=== PATIENT | female | born 1990 | race Native Hawaiian/Other Pacific Islander ===

== ENCOUNTER 2019-04-12 14:48 | Emergency (ER) | payer OTHER ==
[2019-04-12 16:12] VITALS: BP 153/93
--- NOTE | 2019-04-12 16:47 | Emergency Department Report ---
- General Chief Complaint: Upper Respiratory Infection Stated Complaint: FLU LIKE SYMPTOMS Time Seen by Provider: 04/12/19 16:26 Source: patient Mode of arrival: Ambulatory Limitations: No Limitations - History of Present Illness MD Complaint: fever, cough -: days(s) Severity: moderate Context: sick contacts ED Review of Systems ROS: Stated complaint: FLU LIKE SYMPTOMS Other details as noted in HPI Comment: All other systems reviewed and negative Constitutional: fever Respiratory: cough, wheezing. denies: shortness of breath Cardiovascular: denies: chest pain, palpitations Gastrointestinal: denies: abdominal pain, nausea Musculoskeletal: denies: back pain ED Past Medical Hx - Past Medical History Previous Medical History?: No - Surgical History Past Surgical History?: Yes Hx Cholecystectomy: Yes Additional Surgical History: 2 c- sections, wisdom - Social History Smoking Status: Current Every Day Smoker Substance Use Type: None ED Physical Exam - General Limitations: No Limitations General appearance: alert, in no apparent distress - Head Head exam: Present: atraumatic, normocephalic, normal inspection - Eye Eye exam: Present: normal appearance - ENT ENT exam: Present: normal exam, normal orophraynx, mucous membranes moist - Neck Neck exam: Present: normal inspection, full ROM. Absent: tenderness, meningismus - Respiratory Respiratory exam: Present: normal lung sounds bilaterally, wheezes (mild). Absent: respiratory distress - Cardiovascular Cardiovascular Exam: Present: regular rate, normal rhythm, normal heart sounds - GI/Abdominal GI/Abdominal exam: Present: soft, normal bowel sounds. Absent: distended, tenderness, guarding, rebound, rigid - Extremities Exam Extremities exam: Present: normal inspection, full ROM, normal capillary refill - Neurological Exam Neurological exam: Present: alert, oriented X3, CN II-XII intact - Skin Skin exam: Present: warm, intact, normal color ED Course Vital Signs 04/12/19 14:52 Temperature 99.4 F Pulse Rate 126 H Respiratory 19 Rate Blood Pressure 153/93 O2 Sat by Pulse 97 Oximetry Critical care attestation.: If time is entered above; I have spent that time in minutes in the direct care of this critically ill patient, excluding procedure time. ED Disposition Clinical Impression: Acute bronchitis Disposition: DC-01 TO HOME OR SELFCARE Is pt being admited?: No Condition: Stable Instructions: Acute Bronchitis (ED) Referrals: [facility] [Provider Group] - 3-5 Days Forms: Work/School Release Form(ED)
== END 2019-04-12 17:26 | disposition home or self-care (01) ==
LOC: ED 14:48
DX: J20.9 Acute bronchitis, unspecified (principal); F17.200 Nicotine dependence, unspecified, uncomplicated; Z90.49 Acquired absence of other specified parts of digestive tract

== ENCOUNTER 2019-12-10 15:46 | Emergency (ER) | payer MEDICAID ==
[2019-12-10 16:12] VITALS: BP 111/74
--- NOTE | 2019-12-10 17:51 | Event Note ---
ED Screening Note Date of service: 12/10/19 Time: 17:44 ED Screening Note: 29-year-old female at about 10 weeks presents the ED complaining of sudden onset of shortness of breath and sweating while she was at work earlier today. She states shortness of breath is been resolved. Patient denies fever/chills/abdominal pain, vaginal bleed, chest pain or shortness of breath. Patient has an appointment with the BOAT RIGGER tomorrow morning Past medical history of panic attack This initial assessment/diagnostic orders/clinical plan/treatment(s) is/are subject to change based on patients health status, clinical progression and re- assessment by fellow clinical providers in the ED. Further treatment and workup at subsequent clinical providers discretion. Patient/guardian urged not to elope from the ED as their condition may be serious if not clinically assessed and managed. Initial orders include: CBC, BMP, ua, upt
[2019-12-10 19:23] LABS: Basophils % (Auto) 0.4 % (0.0-1.8); Eosinophils # (Auto) 0.1 K/mm3 (0.0-0.4); Eosinophils % (Auto) 0.7 % (0.0-4.3); Hematocrit 36.5 % (30.3-42.9); Hemoglobin 12.1 gm/dl (10.1-14.3); Lymphocytes # (Auto) 2.4 K/mm3 (1.2-5.4); Lymphocytes % (Auto) 18.7 % (13.4-35.0); Mean Corpuscular HGB Conc 33 % (30-34); Mean Corpuscular Volume 84 fl (79-97); Monocytes # (Auto) 0.6 K/mm3 (0.0-0.8); Monocytes % (Auto) 4.5 % (0.0-7.3); Platelet Count 305 K/mm3 (140-440); Red Blood Count 4.36 M/mm3 (3.65-5.03); Red Cell Distribution Width 14.5 % (13.2-15.2)
[2019-12-10 19:28] LABS: BUN/Creatinine Ratio 14; Blood Urea Nitrogen 7 mg/dL (7-17); Calcium 9.3 mg/dL (8.4-10.2); Hemolysis Index 3
[2019-12-10 20:29] LABS: Bilirubin,Urine NEG (Negative); Blood,Urine NEG (Negative); Color,Urine Amber (Yellow); Mucus,Urine 3+ /HPF; Urobilinogen,Urine < 2.0 mg/dL (<2.0)
[2019-12-10 20:31] LABS: HCG Qualitative,Urine Positive (Negative)
[2019-12-10] MEDS ORDERED: hydrOXYzine PAMOATE 25 MG CAP PO ONE (20:59)
--- NOTE | 2019-12-10 21:12 | Emergency Department Report ---
ED General Adult HPI - General Chief complaint: Dyspnea/Respdistress Stated complaint: BP HIGH, 13WKS PREG Source: patient Mode of arrival: Ambulatory Limitations: No Limitations - History of Present Illness Initial comments: Patient is a A2 29-year-old female with a history of chronic anxiety and panic attacks and who is approximately 13 weeks gestation who presen ts to the ED with acute onset persistent shortness of breath, diffuse persistent diaphoresis, diffuse bodily tingling sensations for the last 6 hours while at work. Patient states that she was at work when she started having the symptoms, and that she contacted her DUMP MOTOR OPERATOR physician who advised her to come to the ED for evaluation. Patient denies dizziness, syncope, chest pain, abdominal pain, nausea, vomiting, diarrhea, headache, loss of consciousness, back pain, change in vision or fever, chills, dysuria, urinary frequency and urgency and vaginal bleeding. MD Complaint: dyspnea, diaphoresis; tingling sensations -: Sudden, hour(s) ( ) Location: head, chest Radiation: other (diffuse body sensations) Severity scale (0 -10): 0 Quality: dull Consistency: now resolved Improves with: none Associated Symptoms: denies other symptoms, diaphoresis, shortness of breath. denies: confusion, chest pain, cough, fever/chills, headaches, loss of appetite, malaise, nausea/vomiting, rash, seizure, syncope, weakness ( ) Treatments Prior to Arrival: none - Related Data Previous Rx's Medication Instructions Recorded Last Taken Type hydrOXYzine PAMOATE [Vistaril] 25 mg PO QHS PRN #30 capsule 12/10/19 Unknown Rx Allergies Allergy/AdvReac Type Severity Reaction Status Date / Time No Known Allergies Allergy Unverified 12/10/19 16:11 ED Review of Systems ROS: Stated complaint: BP HIGH, 13WKS PREG Other details as noted in HPI Constitutional: malaise, weakness. denies: chills, fever Eyes: denies: eye pain, eye discharge, vision change ENT: denies: ear pain, throat pain Respiratory: shortness of breath. denies: cough, wheezing Cardiovascular: denies: chest pain, palpitations Endocrine: no symptoms reported Gastrointestinal: denies: abdominal pain, nausea, vomiting, diarrhea Genitourinary: denies: urgency, dysuria, discharge Musculoskeletal: other (diffuse body tingling sensations). denies: back pain, joint swelling, arthralgia Skin: denies: rash, lesions Neurological: denies: headache, weakness, paresthesias Psychiatric: anxiety. denies: depression Hematological/Lymphatic: denies: easy bleeding, easy bruising ED Past Medical Hx - Past Medical History Previous Medical History?: Yes Hx Psychiatric Treatment: Yes (anxiety/panic attacks) - Surgical History Past Surgical History?: No - Social History Smoking Status: Current Every Day Smoker Substance Use Type: None - Medications Home Medications: Home Medications Medication Instructions Recorded Confirmed Last Taken Type hydrOXYzine PAMOATE [Vistaril] 25 mg PO QHS PRN #30 capsule 12/10/19 Unknown Rx ED Physical Exam - General Limitations: No Limitations General appearance: alert, in no apparent distress - Head Head exam: Present: atraumatic, normocephalic, normal inspection - Eye Eye exam: Present: normal appearance, PERRL, EOMI Pupils: Present: normal accommodation - ENT ENT exam: Present: normal exam, normal orophraynx, mucous membranes moist, TM's normal bilaterally, normal external ear exam - Neck Neck exam: Present: normal inspection, full ROM - Respiratory Respiratory exam: Present: normal lung sounds bilaterally. Absent: respiratory distress, wheezes, rales, stridor, chest wall tenderness, accessory muscle use, decreased breath sounds, prolonged expiratory - Cardiovascular Cardiovascular Exam: Present: regular rate, normal rhythm, normal heart sounds. Absent: systolic murmur, diastolic murmur, rubs, gallop - GI/Abdominal GI/Abdominal exam: Present: soft, normal bowel sounds. Absent: tenderness, guarding, rebound, hyperactive bowel sounds - Extremities Exam Extremities exam: Present: normal inspection, full ROM, normal capillary refill - Back Exam Back exam: Present: normal inspection, full ROM. Absent: tenderness, CVA tenderness (R), muscle spasm, paraspinal tenderness, vertebral tenderness - Neurological Exam Neurological exam: Present: alert, oriented X3, CN II-XII intact, normal gait, reflexes normal - Psychiatric Psychiatric exam: Present: normal affect, normal mood, anxious - Skin Skin exam: Present: warm, dry, intact, normal color. Absent: rash ED Course Vital Signs 12/10/19 16:08 Temperature 99.0 F Pulse Rate 99 H Respiratory 16 Rate Blood Pressure 111/74 O2 Sat by Pulse 99 Oximetry ED Medical Decision Making - Lab Data Result diagrams: 12/10/19 18:50 12/10/19 18:50 - Medical Decision Making This is a A2 29-year-old female with a history of chronic anxiety and panic attacks and who is approximately 13 weeks gestation who presents to the ED with acute onset persistent shortness of breath, diffuse persistent diaphoresis, diffuse bodily tingling sensations for the last 6 hours while at work. Patient states that she was at work when she started having the symptoms, and that she contacted her DUMP MOTOR OPERATOR physician who advised her to come to the ED for evaluation. Patient states that upon arrival in the ED these sensations and symptoms resolved. In the ED, patient is alert and oriented x3 and is not in distress, with normal vital signs. Lab test results were reviewed and are all nonactionable. Patient was treated for anxiety in the ED with Vistaril. Patient was discharged home on medications and advised to follow-up with DUMP MOTOR OPERATOR physician in 5 to 7 days for reevaluation or return to the ED immediately if symptoms get worse. - Differential Diagnosis anxiety; panic attack; dehydration; Critical care attestation.: If time is entered above; I have spent that time in minutes in the direct care of this critically ill patient, excluding procedure time. ED Disposition Clinical Impression: Anxiety as acute reaction to exceptional stress Disposition: DC-01 TO HOME OR SELFCARE Is pt being admited?: No Does the pt Need Aspirin: No Condition: Stable Instructions: Generalized Anxiety Disorder (ED) Additional Instructions: Take medication with food, drink plenty of fluids and follow-up with your DUMP MOTOR OPERATOR physician in Prescriptions: hydrOXYzine PAMOATE [Vistaril] 25 mg PO QHS PRN #30 capsule PRN Reason: Anxiety Referrals: AROLDO HORNE MD [Staff Physician] - 3-5 Days Time of Disposition: 21:24 Print Language: SLOVAK
== END 2019-12-10 21:32 | disposition home or self-care (01) ==
LOC: MERGE 15:46 → ED 15:46
DX: O99.341 Other mental disorders complicating pregnancy, first trimester (principal); F43.8 Other reactions to severe stress; F41.9 Anxiety disorder, unspecified; Z3A.13 13 weeks gestation of pregnancy
CPT/HCPCS: 36415; 80048; 81001; 81025; 85025; 99283; Q0177

== ENCOUNTER 2020-06-12 23:24 | Emergency (ER) | payer MEDICAID ==
[2020-06-12 23:33] VITALS: BP 166/67
--- NOTE | 2020-06-12 23:41 | Emergency Department Report ---
ED General Adult HPI - General Chief complaint: Dental/Oral Stated complaint: SWOLLEN JAW,LYMOPH NODE Time Seen by Provider: 06/12/20 23:38 Source: patient Mode of arrival: Ambulatory Limitations: No Limitations - History of Present Illness Initial comments: 29-year-old female presents with complaints of right lower dental pain x2 days now with facial swelling for 1 day. She rates her pain as 10/10 in severity and states she was recently prescribed Percocet for a and it has been helping with her pain. She denies any fever/chills/sweats or difficulty opening her jaw. No dysphagia either per patient - Related Data Previous Rx's Medication Instructions Recorded Last Taken Type Albuterol Mdi (or & Nicu Only) 2 puff IH QID PRN #1 inhalation 04/12/19 Unknown Rx [ProAir HFA Inhaler] Amoxicillin [Amoxicillin TAB] 875 mg PO BID #14 tablet 04/12/19 Unknown Rx guaiFENesin [Robitussin] 10 ml PO TID PRN #100 ml 04/12/19 Unknown Rx hydrOXYzine PAMOATE [Vistaril] 25 mg PO QHS PRN #30 capsule 12/10/19 Unknown Rx Clindamycin [Clindamycin CAP] 300 mg PO Q6H 10 Days #40 capsule 06/13/20 Unknown Rx Allergies Allergy/AdvReac Type Severity Reaction Status Date / Time No Known Allergies Allergy Verified 06/12/20 23:31 ED Review of Systems ROS: Stated complaint: SWOLLEN JAW,LYMOPH NODE Other details as noted in HPI Constitutional: denies: diaphoresis, fever, malaise ENT: dental pain Respiratory: denies: cough, shortness of breath Cardiovascular: denies: chest pain Skin: denies: change in color Neurological: denies: headache, numbness, paresthesias Hematological/Lymphatic: denies: swollen glands ED Past Medical Hx - Past Medical History Previous Medical History?: Yes Hx Psychiatric Treatment: Yes (anxiety/panic attacks) - Surgical History Past Surgical History?: Yes Hx Cholecystectomy: Yes Additional Surgical History: 3 c- sections, wisdom - Social History Smoking Status: Current Every Day Smoker Substance Use Type: None - Medications Home Medications: Home Medications Medication Instructions Recorded Confirmed Last Taken Type Albuterol Mdi (or & Nicu Only) 2 puff IH QID PRN #1 inhalation 04/12/19 Unknown Rx [ProAir HFA Inhaler] Amoxicillin [Amoxicillin TAB] 875 mg PO BID #14 tablet 04/12/19 Unknown Rx guaiFENesin [Robitussin] 10 ml PO TID PRN #100 ml 04/12/19 Unknown Rx hydrOXYzine PAMOATE [Vistaril] 25 mg PO QHS PRN #30 capsule 12/10/19 Unknown Rx Clindamycin [Clindamycin CAP] 300 mg PO Q6H 10 Days #40 capsule 06/13/20 Unknown Rx ED Physical Exam - General Limitations: No Limitations General appearance: alert, in no apparent distress - Head Head exam: Present: atraumatic, normocephalic - Eye Eye exam: Present: normal appearance - Expanded ENT Exam Expanded Mouth exam: Absent: drooling, trismus, muffled voice Teeth exam: Present: dental tenderness # 1 - Dental Tenderness (Dental abscess noted with moderate overlying facial swelling and tenderness noted; no cellulitic changes noted) - Neck Neck exam: Present: normal inspection - Respiratory Respiratory exam: Absent: respiratory distress - Cardiovascular Cardiovascular Exam: Present: regular rate - Neurological Exam Neurological exam: Present: alert, oriented X3, normal gait - Psychiatric Psychiatric exam: Present: normal affect, normal mood - Skin Skin exam: Present: warm, dry, intact, normal color. Absent: rash ED Course Vital Signs 06/12/20 23:29 Temperature 98.3 F Pulse Rate 62 Respiratory 17 Rate Blood Pressure 166/67 O2 Sat by Pulse 99 Oximetry - I & D Face Type of Procedure: Simple Site: Right lower gumline Blade Size: 11 Progress: 18-gauge needle was used to open abscess. Patient tolerated procedure well with minimal bleeding. Moderate purulent drainage noted from wound ED Medical Decision Making - Medical Decision Making 29-year-old female presents with complaints of right lower dental pain x2 days now with facial swelling for 1 day. She rates her pain as 10/10 in severity and states she was recently prescribed Percocet for a and it has been helping with her pain. She denies any fever/chills/sweats or difficult y opening her jaw. No dysphagia either per patient Incision and drainage performed with moderate purulent drainage from dental abscess. Patient tolerated procedure well without any immediate complications. Toradol given for pain. Clindamycin prescription given. Patient states she will call her dental specialist tomorrow for an appointment. Strict return precautions were discussed in detail with patient verbalized understanding. Critical care attestation.: If time is entered above; I have spent that time in minutes in the direct care of this critically ill patient, excluding procedure time. ED Disposition Clinical Impression: Dental abscess Disposition: DC- TO HOME OR SELFCARE Is pt being admited?: No Condition: Stable Instructions: Dental Abscess Prescriptions: Clindamycin [Clindamycin CAP] 300 mg PO Q6H 10 Days #40 capsule
[2020-06-13] MEDS ORDERED: KETOROLAC 30 MG/1 ML INJ IM ONE (00:25)
== END 2020-06-13 01:10 | disposition home or self-care (01) ==
LOC: ED 23:24
DX: K04.7 Periapical abscess without sinus (principal); F41.9 Anxiety disorder, unspecified; F17.200 Nicotine dependence, unspecified, uncomplicated; Z98.890 Other specified postprocedural states; Z79.2 Long term (current) use of antibiotics; Z79.899 Other long term (current) drug therapy
CPT/HCPCS: 41800; 96372; 99282; J1885

== ENCOUNTER 2020-06-18 02:28 | Emergency (ER) | payer MEDICAID ==
[2020-06-18] MEDS ORDERED: NEOMY 3.5 MG/BACIT 400 UNITS/POLY B 5000 UNITS/GM OINT PACKET TP ONE (03:03)
--- NOTE | 2020-06-18 03:10 | Emergency Department Report ---
- General Chief Complaint: Laceration/Recheck/Suture Stated Complaint: POST CSECTION COMPLICATIONS Time Seen by Provider: 06/18/20 02:50 Source: patient Mode of arrival: Ambulatory Limitations: No Limitations - History of Present Illness Initial Comments: Patient is a 29-year-old female that presents emergency room for a wound check. 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 Patient states her site is opening. Patient states that there is a small amount of purulent discharge from the open site. Patient states is on the left aspect of her . Patient states it was closed up until 2 days ago. Patient states she has tried topical therapy. Patient states she just wants to have it checked to make sure everything is okay. Patient denies fever chills. Patient denies redness to the skin. Patient denies cough. Patient denies streaking. Patient states that the purulent discharge is a small amount. Patient denies pain at the open area. Patient denies pain at the surgical site. Patient denies abdominal pain. Patient states she was seen here approximately 5 or 6 days ago for a abscessed tooth and was given clindamycin. Patient states she is compliant and currently taking the clindamycin. Patient denies other symptoms. Patient denies pain. Patient denies recent travel. Patient denies recent international travel. Patient denies exposure to the novel coronavirus. Patient denies sick contacts. Patient denies fever and chills. Patient denies cough. Patient denies diarrhea. Patient denies coming in contact with anybody with symptoms of the novel coronavirus. -: Gradual Place: home Patient Tetanus UTD: Yes Associated Symptoms: none - Related Data Previous Rx's Medication Instructions Recorded Last Taken Type Albuterol Mdi (or & Nicu Only) 2 puff IH QID PRN #1 inhalation 04/12/19 Unknown Rx [ProAir HFA Inhaler] Amoxicillin [Amoxicillin TAB] 875 mg PO BID #14 tablet 04/12/19 Unknown Rx guaiFENesin [Robitussin] 10 ml PO TID PRN #100 ml 04/12/19 Unknown Rx hydrOXYzine PAMOATE [Vistaril] 25 mg PO QHS PRN #30 capsule 12/10/19 Unknown Rx Clindamycin [Clindamycin CAP] 300 mg PO Q6H 10 Days #40 capsule 06/13/20 Unknown Rx Allergies Allergy/AdvReac Type Severity Reaction Status Date / Time No Known Allergies Allergy Verified 06/12/20 23:31 ED Review of Systems ROS: Stated complaint: POST CSECTION COMPLICATIONS Other details as noted in HPI Constitutional: denies: chills, fever Eyes: denies: eye pain, eye discharge, vision change ENT: denies: ear pain, throat pain Respiratory: denies: cough, shortness of breath, wheezing Cardiovascular: denies: chest pain, palpitations Endocrine: no symptoms reported Gastrointestinal: denies: abdominal pain, nausea, diarrhea Genitourinary: denies: urgency, dysuria, discharge Musculoskeletal: denies: back pain, joint swelling, arthralgia Skin: denies: rash, lesions Neurological: denies: headache, weakness, paresthesias Psychiatric: denies: anxiety, depression Hematological/Lymphatic: denies: easy bleeding, easy bruising ED Past Medical Hx - Past Medical History Previous Medical History?: Yes Hx Psychiatric Treatment: Yes (anxiety/panic attacks) - Surgical History Past Surgical History?: Yes Hx Cholecystectomy: Yes Additional Surgical History: 3 c- sections, wisdom - Family History Family history: no significant - Social History Smoking Status: Current Every Day Smoker Substance Use Type: None - Medications Home Medications: Home Medications Medication Instructions Recorded Confirmed Last Taken Type Albuterol Mdi (or & Nicu Only) 2 puff IH QID PRN #1 inhalation 04/12/19 Unknown Rx [ProAir HFA Inhaler] Amoxicillin [Amoxicillin TAB] 875 mg PO BID #14 tablet 04/12/19 Unknown Rx guaiFENesin [Robitussin] 10 ml PO TID PRN #100 ml 04/12/19 Unknown Rx hydrOXYzine PAMOATE [Vistaril] 25 mg PO QHS PRN #30 capsule 12/10/19 Unknown Rx Clindamycin [Clindamycin CAP] 300 mg PO Q6H 10 Days #40 capsule 06/13/20 Unknown Rx ED Physical Exam - General Limitations: No Limitations General appearance: alert, in no apparent distress - Head Head exam: Present: atraumatic, normocephalic - Eye Eye exam: Present: normal appearance - ENT ENT exam: Present: mucous membranes moist - Neck Neck exam: Present: normal inspection - Respiratory Respiratory exam: Present: normal lung sounds bilaterally. Absent: respiratory distress - Cardiovascular Cardiovascular Exam: Present: regular rate, normal rhythm. Absent: systolic murmur, diastolic murmur, rubs, gallop - GI/Abdominal GI/Abdominal exam: Present: soft, normal bowel sounds. Absent: distended, tenderness, guarding - Extremities Exam Extremities exam: Present: normal inspection - Back Exam Back exam: Present: normal inspection - Neurological Exam Neurological exam: Present: alert, oriented X3 - Psychiatric Psychiatric exam: Present: normal affect, normal mood - Skin Skin exam: Present: warm, dry, normal color, other (Left lateral wound open area noted. Area measures 3 cm. No purulent discharge noted. No pus. No redness. No cellulitis. No tenderness to palpation.). Absent: rash ED Medical Decision Making - Medical Decision Making Patient is a 29-year-old female who presents emergency room for a wound check of her site. Patient states her site opened up. Patient states she has some discharge from it. Patient site was examined with a nurse in the room. No signs of infection. No purulent discharge. Patient is already on clindamycin for a abscessed tooth. Patient directed to continue and complete clindamycin. Patient given wound care instructions. Patient stable for discharge. Patient discharged home. Patient will need to follow-up with her JAVA LEAD ARCHITECT for wound care. Prior to discharge, the a sterile dressing was applied along with bacitracin. - Differential Diagnosis Wound dehiscence, open wound, Critical care attestation.: If time is entered above; I have spent that time in minutes in the direct care of this critically ill patient, excluding procedure time. ED Disposition Clinical Impression: Open wound, Dehiscence of section wound, Disposition: DC-01 TO HOME OR SELFCARE Is pt being admited?: No Does the pt Need Aspirin: No Condition: Stable Instructions: Wound Infection, [id number], Wound Care, Adult Additional Instructions: Patient to follow-up with primary care in 2 to 3 days. Patient to follow-up with J[employer] LEAD ARCHITECT in 2 to 3 days. Patient to rest. Patient to increase water. Patient to avoid strenuous exercise or heavy lifting until cleared by J[employer] LEAD ARCHITECT. Patient to keep site clean and dry. Patient to apply bacitracin to area. Patient to change the dressing twice a day. Patient to take Tylenol or ibuprofen as needed for pain. Patient to continue and complete clindamycin. Patient to return to the ER if condition worsens, changes or new symptoms arise. Referrals: ADRYAN LOPEZ [Other] - 2-3 Days Time of Disposition: 03:10
[2020-06-18 03:27] VITALS: BP 133/86
== END 2020-06-18 03:30 | disposition home or self-care (01) ==
LOC: ED 02:28
DX: O90.0 Disruption of cesarean delivery wound (principal); Z90.49 Acquired absence of other specified parts of digestive tract; Z98.890 Other specified postprocedural states
CPT/HCPCS: 99283; A6250

== ENCOUNTER 2021-04-07 22:27 | Emergency (ER) | payer MEDICAID ==
[2021-04-07 23:18] VITALS: BP 162/90
--- NOTE | 2021-04-07 23:19 | Emergency Department Report ---
ED General Adult HPI - General Chief complaint: Dizziness Stated complaint: DIZZINESS/HEADACHE Time Seen by Provider: 04/07/21 23:19 Source: patient Mode of arrival: Ambulatory Limitations: No Limitations - History of Present Illness Initial comments: Patient presents with headache and dizziness. She states that she had been treated for sepsis several weeks ago. 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 She was told that she had an infection, BV, and was given medications. Somehow or other she get this translated into sepsis and I cannot sort that piece of it out. Regardless, she was not admitted. She did not have any x-rays obtained. She had no urine checked. She only had blood work sent. Today, she is here because she has a headache and feels dizzy. She states that this is just like she felt when she was told that she had sepsis. - Related Data Previous Rx's Medication Instructions Recorded Last Taken Type Albuterol Mdi (or & Nicu Only) 2 puff IH QID PRN #1 inhalation 04/12/19 Unknown Rx [ProAir HFA Inhaler] guaiFENesin [Robitussin] 10 ml PO TID PRN #100 ml 04/12/19 Unknown Rx hydrOXYzine PAMOATE [Vistaril] 25 mg PO QHS PRN #30 capsule 12/10/19 Unknown Rx Ibuprofen [Motrin] 800 mg PO Q8HR PRN #20 tablet 04/08/21 Unknown Rx Allergies Allergy/AdvReac Type Severity Reaction Status Date / Time No Known Allergies Allergy Verified 06/12/20 23:31 ED Review of Systems ROS: Stated complaint: DIZZINESS/HEADACHE Other details as noted in HPI Comment: All other systems reviewed and negative Constitutional: denies: fever Eyes: denies: eye pain ENT: denies: throat pain Respiratory: denies: cough Cardiovascular: denies: chest pain Endocrine: denies: unexplained weight loss Gastrointestinal: denies: abdominal pain Genitourinary: denies: dysuria Musculoskeletal: denies: back pain Skin: denies: rash Neurological: as per HPI, headache Hematological/Lymphatic: denies: swollen glands ED Past Medical Hx - Past Medical History Previous Medical History?: Yes Hx Psychiatric Treatment: Yes (anxiety/panic attacks) - Surgical History Past Surgical History?: Yes Hx Cholecystectomy: Yes Additional Surgical History: 3 c- sections, wisdom - Social History Smoking Status: Current Every Day Smoker (We discussed tobacco cessation) Substance Use Type: None - Medications Home Medications: Home Medications Medication Instructions Recorded Confirmed Last Taken Type Albuterol Mdi (or & Nicu Only) 2 puff IH QID PRN #1 inhalation 04/12/19 Unknown Rx [ProAir HFA Inhaler] guaiFENesin [Robitussin] 10 ml PO TID PRN #100 ml 04/12/19 Unknown Rx hydrOXYzine PAMOATE [Vistaril] 25 mg PO QHS PRN #30 capsule 12/10/19 Unknown Rx Ibuprofen [Motrin] 800 mg PO Q8HR PRN #20 tablet 04/08/21 Unknown Rx ED Physical Exam - General Limitations: No Limitations, Other (Pulse ox noted and normal) General appearance: alert, in no apparent distress - Head Head exam: Present: atraumatic, normocephalic, normal inspection - Eye Eye exam: Present: normal appearance, EOMI. Absent: scleral icterus - ENT ENT exam: Present: normal exam, normal orophraynx, normal external ear exam - Neck Neck exam: Present: normal inspection. Absent: meningismus - Respiratory Respiratory exam: Present: normal lung sounds bilaterally. Absent: respiratory distress - Cardiovascular Cardiovascular Exam: Present: regular rate, normal rhythm - GI/Abdominal GI/Abdominal exam: Present: soft. Absent: distended, tenderness - Extremities Exam Extremities exam: Present: normal capillary refill. Absent: pedal edema - Back Exam Back exam: Absent: CVA tenderness (R), CVA tenderness (L) - Neurological Exam Neurological exam: Present: alert, oriented X3, normal gait. Absent: motor sensory deficit - Psychiatric Psychiatric exam: Present: normal affect, normal mood - Skin Skin exam: Present: warm, dry ED Course Vital Signs 04/07/21 23:14 Temperature 98.3 F Pulse Rate 110 H Respiratory 16 Rate Blood Pressure 162/90 O2 Sat by Pulse 100 Oximetry - Reevaluation(s) Reevaluation #1: 04/07/21 23:19 IV and labs were ordered Reevaluation #2: 04/08/21 01:16 Labs are noted and the patient was discharged ED Medical Decision Making - Lab Data Result diagrams: 04/07/21 23:23 04/07/21 23:23 Rhythm strip: Sinus tachycardia without ectopy per monitor observed in seconds. - Radiology Data Radiology results: report reviewed - Medical Decision Making Patient presents with reports of sepsis. She actually feels dizzy and lightheaded is her chief complaint. There is no neurologic symptom or deficit that would suggest cord injury or cauda equina or subdural or epidural hematomas. She did not have abrupt onset of headache. I do not believe this represents subarachnoid hemorrhage. Patient does not appear to be toxic. She certainly does not appear to be septic. There is no evidence of any type of infectious process at this time. She does not have any metabolic derangement. She is not in DKA. Critical Care Time: No Critical care attestation.: If time is entered above; I have spent that time in minutes in the direct care of this critically ill patient, excluding procedure time. ED Disposition Clinical Impression: Lightheaded Acute headache Qualifiers: Headache type: unspecified Intractability: not intractable Qualified Code(s): R51.9 - Headache, unspecified Disposition: 01 HOME / SELF CARE / HOMELESS Is pt being admited?: No Condition: Stable Instructions: General Headache Without Cause, Dizziness Additional Instructions: Drink plenty water. Return for problems. Follow-up with your regular doctor. If you have worsening symptoms, develop new fevers, or have other issues, please return. Prescriptions: Ibuprofen [Motrin] 800 mg PO Q8HR PRN #20 tablet PRN Reason: Pain , Severe (7-10) Referrals: PRIMARY MD DAVE [Primary Care Provider] - 3-5 Days YOGESH HURTADO MD [Staff Physician] - 3-5 Days
--- NOTE | 2021-04-07 23:46 | XRay Report ---
CHEST 2 VIEWS INDICATION / CLINICAL INFORMATION: h/o sepsis, weakness. COMPARISON: None available. FINDINGS: SUPPORT DEVICES: None. HEART / MEDIASTINUM: No significant abnormality. LUNGS / PLEURA: Suboptimal inspiration with low lung volumes. No acute airspace disease. No pneumotho rax. ADDITIONAL FINDINGS: No significant additional findings. IMPRESSION: 1. No acute findings. Signer Name: Camille Soto MD Signed: 04/07/2021 11:42 PM Workstation Name: [id number]
[2021-04-07 23:54] LABS: BUN/Creatinine Ratio 19; Blood Urea Nitrogen 15 mg/dL (7-17); Calcium 8.9 mg/dL (8.4-10.2); Hemolysis Index 2
[2021-04-08 00:02] LABS: Hematocrit 32.5 % (30.3-42.9); Hemoglobin 10.6 gm/dl (10.1-14.3); Mean Corpuscular HGB Conc 33 % (30-34); Mean Corpuscular Volume 79 fl (79-97); Platelet Count 353 K/mm3 (140-440); Red Blood Count 4.13 M/mm3 (3.65-5.03)
[2021-04-08 00:42] LABS: Bilirubin,Urine NEG (Negative); Blood,Urine NEG (Negative); Color,Urine Yellow (Yellow); Mucus,Urine FEW /HPF; Urobilinogen,Urine < 2.0 mg/dL (<2.0)
== END 2021-04-08 01:48 | disposition home or self-care (01) ==
LOC: ED 22:27
DX: R42 Dizziness and giddiness (principal); R51.9 Headache, unspecified; F17.200 Nicotine dependence, unspecified, uncomplicated
CPT/HCPCS: 36415; 71046; 80048; 81001; 82140; 85027

== ENCOUNTER 2021-06-20 11:25 | Emergency (ER) | payer MEDICAID ==
[2021-06-20] MEDS ORDERED: KETOROLAC 60 MG/2 ML INJ IM ONE (12:34)
[2021-06-20] MEDS ORDERED: predniSONE 20 MG TAB PO ONE (12:34)
[2021-06-20] MEDS ORDERED: CYCLOBENZAPRINE 10 MG TAB PO ONE (12:34)
--- NOTE | 2021-06-20 14:32 | Emergency Department Report ---
ED Back Pain/Injury HPI - General Chief Complaint: Back Pain/Injury Stated Complaint: BACK PAIN Time Seen by Provider: 06/20/21 12:28 Source: patient Limitations: No Limitations - History of Present Illness Initial Comments: This is a 30-year-old female nontoxic, well nourished in appearance, no acute signs of distress presents to the ED with c/o of lower back pain times several days. Patient denies any radiation. Patient denies any other complaints or symptoms. Patient stated pain is worsened with movement and improved while at rest. Patient denies any trauma. Denies any bladder or bowel instability. Patient denies any urinary symptoms. Denies any fever, chills, nausea, vomiting, headache, stiff neck, chest pain or shortness of breath. Patient denies any numbness or tingling. Denies any allergies. Denies significant past medical history. MD Complaint: back pain -: days(s) Similar Symptoms Previously: Yes Radiation: none Severity: mild Severity scale (0 -10): 3 Quality: aching Consistency: intermittent Improves With: immobilization, sitting upright Worsens With: movement, walking Associated Symptoms: denies other symptoms. denies: confusion, weakness, chest pain, numbness, difficulty walking, cough, difficulty urinating, diaphoresis, incontinence, fever/chills, constipation, headaches, abdominal pain, loss of appetite, malaise, nausea/vomiting, rash, seizure, shortness of breath, syncope - Related Data Previous Rx's Medication Instructions Recorded Last Taken Type Albuterol Mdi (or & Nicu Only) 2 puff IH QID PRN #1 inhalation 04/12/19 Unknown Rx [ProAir HFA Inhaler] guaiFENesin [Robitussin] 10 ml PO TID PRN #100 ml 04/12/19 Unknown Rx hydrOXYzine PAMOATE [Vistaril] 25 mg PO QHS PRN #30 capsule 12/10/19 Unknown Rx Ibuprofen [Motrin] 800 mg PO Q8HR PRN #20 tablet 04/08/21 Unknown Rx Cyclobenzaprine [Flexeril] 10 mg PO QHS PRN #10 tab 06/20/21 Unknown Rx Naproxen 500 mg PO Q12H PRN #12 tab 06/20/21 Unknown Rx Allergies Allergy/AdvReac Type Severity Reaction Status Date / Time No Known Allergies Allergy Verified 06/12/20 23:31 ED Review of Systems ROS: Stated complaint: BACK PAIN Other details as noted in HPI Constitutional: denies: chills, fever Eyes: denies: eye pain, eye discharge, vision change ENT: denies: ear pain, throat pain Respiratory: denies: cough, shortness of breath, wheezing Cardiovascular: denies: chest pain, palpitations Endocrine: no symptoms reported Gastrointestinal: denies: abdominal pain, nausea, diarrhea Genitourinary: denies: urgency, dysuria, discharge Musculoskeletal: back pain. denies: joint swelling, arthralgia Skin: denies: rash, lesions Neurological: denies: headache, weakness, paresthesias Psychiatric: denies: anxiety, depression Hematological/Lymphatic: denies: easy bleeding, easy bruising ED Past Medical Hx - Past Medical History Hx Psychiatric Treatment: Yes (anxiety/panic attacks) - Surgical History Hx Cholecystectomy: Yes Additional Surgical History: 3 c- sections, wisdom - Social History Smoking Status: Current Every Day Smoker (We discussed tobacco cessation) Substance Use Type: None - Medications Home Medications: Home Medications Medication Instructions Recorded Confirmed Last Taken Type Albuterol Mdi (or & Nicu Only) 2 puff IH QID PRN #1 inhalation 04/12/19 Unknown Rx [ProAir HFA Inhaler] guaiFENesin [Robitussin] 10 ml PO TID PRN #100 ml 04/12/19 Unknown Rx hydrOXYzine PAMOATE [Vistaril] 25 mg PO QHS PRN #30 capsule 12/10/19 Unknown Rx Ibuprofen [Motrin] 800 mg PO Q8HR PRN #20 tablet 04/08/21 Unknown Rx Cyclobenzaprine [Flexeril] 10 mg PO QHS PRN #10 tab 06/20/21 Unknown Rx Naproxen 500 mg PO Q12H PRN #12 tab 06/20/21 Unknown Rx ED Physical Exam - General Limitations: No Limitations General appearance: alert, in no apparent distress - Head Head exam: Present: atraumatic, normocephalic - Eye Eye exam: Present: normal appearance - Neck Neck exam: Present: normal inspection, full ROM. Absent: lymphadenopathy - Respiratory Respiratory exam: Absent: respiratory distress - Cardiovascular Cardiovascular Exam: Present: regular rate - GI/Abdominal GI/Abdominal exam: Present: soft, normal bowel sounds. Absent: distended, tenderness, guarding, rebound, rigid, diminished bowel sounds - Extremities Exam Extremities exam: Present: normal inspection, full ROM, normal capillary refill. Absent: tenderness - Back Exam Back exam: Present: normal inspection, full ROM, paraspinal tenderness (lumbar paraspinal). Absent: tenderness, CVA tenderness (R), CVA tenderness (L), muscle spasm, vertebral tenderness, rash noted - Expanded Back Exam Expanded Back exam: Absent: saddle anesthesia Back exam: Negative Straight Leg Raising: Left, Right - Neurological Exam Neurological exam: Present: alert, oriented X3, normal gait - Psychiatric Psychiatric exam: Present: normal affect, normal mood - Skin Skin exam: Present: warm, dry, intact, normal color. Absent: rash ED Course Vital Signs 06/20/21 11:29 Temperature 98.6 F Pulse Rate 81 Respiratory 16 Rate Blood Pressure 129/79 [Right] O2 Sat by Pulse 98 Oximetry - Reevaluation(s) Reevaluation #1: 06/20/21 14:24 Patient is speaking in full sentences with no signs of distress noted. ED Medical Decision Making - Lab Data Lab Results 06/20/21 Range/Units 12:56 Urine Color Yellow (Yellow) Urine Turbidity Cloudy (Clear) Urine pH 5.0 (5.0-7.0) Ur Specific [place] 1.024 (1.003-1.030) Urine Protein <15 mg/dl (Negative) mg/dL Urine Glucose (UA) Neg (Negative) mg/dL Urine Ketones Tr (Negative) mg/dL Urine Blood Sm (Negative) Urine Nitrite Neg (Negative) Ur Reducing Substances Not Reportable Urine Bilirubin Neg (Negative) Urine Ictotest Not Reportable Urine Urobilinogen < 2.0 (<2.0) mg/dL Ur Leukocyte Esterase Neg (Negative) Urine WBC (Auto) 3.0 (0.0-6.0) /HPF Urine RBC (Auto) 2.0 (0.0-6.0) /HPF U Epithel Cells (Auto) 39.0 H (0-13.0) /HPF Urine Bacteria (Auto) 1+ (Negative) /HPF Urine Mucus 3+ /HPF Urine HCG, Qual Negative (Negative) - Medical Decision Making This is a 30-year-old female that presents with low back strain. Patient is stable was examined by me. There is no cauda equina syndrome during examination. No bladder or bowel instability. Patient received Toradol 60 mg IM, flexeril, prednisone in the ED which stated that his symptoms has resolved and subsided. Patient is discharged with muscle relaxant and Naproxen. Patient was instructed not to operate any machinery while taking muscle relaxant as they cause her drowsiness. Patient was referred to Follow-up with a primary care doctor in 3-5 days or if symptoms worsen and continue return to emergency room as soon as possible. At time of discharge, the patient does not seem toxic or ill in appearance. No acute signs of distress noted. Patient agrees to discharge treatment plan of care. No further questions noted by the patient. This chart is dictated with using [employer] Critical care attestation.: If time is entered above; I have spent that time in minutes in the direct care of this critically ill patient, excluding procedure time. ED Disposition Clinical Impression: Low back strain Qualifiers: Encounter type: initial encounter Qualified Code(s): S39.012A - Strain of muscle, fascia and tendon of lower back, initial encounter Disposition: HOME / SELF CARE / HOMELESS Is pt being admited?: No Does the pt Need Aspirin: No Condition: Stable Instructions: Lumbar Strain Additional Instructions: Follow-up with your primary care doctor in 3-5 days or if symptoms worsen such as bladder or bowel stability, chest pain, short of breath, numbness or tingling sensation in extremities, headache, dizziness, visual changes, nausea vomiting, or abdominal pain, return back to emergency room as was possible. Take naproxen and Flexeril as prescribed. Do not operate heavy machinery while taking Flexeril due to sedation Prescriptions: Cyclobenzaprine [Flexeril] 10 mg PO QHS PRN #10 tab PRN Reason: Muscle Spasm Naproxen 500 mg PO Q12H PRN #12 tab PRN Reason: Pain , Severe (7-10) Referrals: PRIMARY CARE, [Primary Care Provider] - 3-5 Days YAJAIRA SHAIKH MD [Staff Physician] - 3-5 Days Time of Disposition: 15:24
[2021-06-20 15:13] LABS: HCG Qualitative,Urine Negative (Negative)
[2021-06-20 15:14] LABS: Bacteria,Urine 1+ /HPF (Negative); Bilirubin,Urine NEG (Negative); Blood,Urine SM (Negative); Color,Urine Yellow (Yellow); Mucus,Urine 3+ /HPF; Protein,Urine <15 mg/dL mg/dL (Negative); Urobilinogen,Urine < 2.0 mg/dL (<2.0)
[2021-06-20 16:11] VITALS: BP 109/60
== END 2021-06-20 16:11 | disposition home or self-care (01) ==
LOC: ED 11:25
DX: S39.012A Strain of muscle, fascia and tendon of lower back, initial encounter (principal); F41.9 Anxiety disorder, unspecified; F17.200 Nicotine dependence, unspecified, uncomplicated; Z90.49 Acquired absence of other specified parts of digestive tract; Z98.890 Other specified postprocedural states; Z79.899 Other long term (current) drug therapy; Y93.89 Activity, other specified; Y92.89 Other specified places as the place of occurrence of the external cause; Y99.8 Other external cause status
CPT/HCPCS: 81001; 81025; 96372; 99283; J1885; J7512